=== PATIENT | female | born 1970 | race Caucasian/White ===

== ENCOUNTER 2019-12-14 20:09 | Emergency (ER) | payer OTHER ==
[~2019-12-14] VITALS: Ht 160 cm; Wt 137.0 kg
[2019-12-14] MEDS ORDERED: silver sulfADIAZINE 1% CREAM 50GM JAR. TP ONE (20:15)
[2019-12-14 20:17] VITALS: BP 156/86
[2019-12-14] MEDS ORDERED: SILV20CR14 TP (20:23)
[2019-12-14] MEDS ORDERED: HYDR-3165 PO (20:23)
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
[2019-12-14] MEDS ORDERED: HYDROcodone/APAP 5/325MG 1 TAB TABLET PO ONE (20:30)
== END 2019-12-14 20:40 | disposition home or self-care (01) ==
LOC: ER 20:09
DX: T23.272A Burn of second degree of left wrist, initial encounter (principal); E11.9 Type 2 diabetes mellitus without complications; F41.9 Anxiety disorder, unspecified; F32.9 Major depressive disorder, single episode, unspecified; F17.210 Nicotine dependence, cigarettes, uncomplicated; X12.XXXA Contact with other hot fluids, initial encounter; Y93.89 Activity, other specified; Y92.89 Other specified places as the place of occurrence of the external cause; Y99.8 Other external cause status
CPT/HCPCS: 16020; 99284

== ENCOUNTER 2021-04-01 17:18 | Emergency (ER) | payer OTHER ==
[~2021-04-01] VITALS: Ht 160 cm; Wt 137.0 kg
[~2021-04-01 17:18] MED LIST: HYDR-3165 PO; SILV20CR14 TP
[2021-04-01 17:49] VITALS: BP 147/91
[2021-04-01] MEDS ORDERED: diazePAM 5 MG TABLET. PO ONE (18:45)
[2021-04-01] MEDS ORDERED: DIAZ5TAB4 PO (18:56)
--- NOTE | 2021-04-01 18:56 | PHYS DOC ---
Past History Past Medical History: Anxiety, Depression, Diabetes Additional Past Medical Histor: Born with one kidney Past Surgical History: Cholecystectomy, Additional Past Surgical Histo: Lap Band, Shoulder, R foot, R knee, hernia Smoking: Cigarettes Alcohol Use: None Drug Use: None Adult General Chief Complaint Chief Complaint: ANXIETY/PANIC ATTACK HPI HPI Patient is a 50-year-old female who presents with a chief complaint of anxiety and medication refill. States she has anxiety and depression at baseline, and is out of her Xanax. States that she does not see her physician until Tuesday and would like a medication refill. Denies headache, change in vision, chest pain, shortness of breath, abdominal pain, nausea, vomiting. Denies any recent travel, illnesses, known ill contacts or history of VTE. States that she is here for anxiety medicine. Review of Systems Review of Systems Review of systems otherwise unremarkable except noted in HPI Allergies Allergies Allergies Coded Allergies Type Severity Reaction Last Updated Verified Penicillins Allergy Unknown 12/14/19 Yes sulfamethoxazole Allergy Unknown 12/14/19 Yes trimethoprim Allergy Unknown 12/14/19 Yes Physical Exam Physical Exam Constitutional: Well developed, well nourished, no acute distress, non-toxic appearance. [] HENT: Normocephalic, atraumatic, bilateral external ears normal, oropharynx moist, no oral exudates, nose normal. [] Eyes: conjunctiva normal, no discharge. [] Neck: Normal range of motion, no tenderness, supple, no stridor. [] Cardiovascular:Heart rate regular rhythm, no murmur [] Lungs & Thorax: Bilateral breath sounds clear to auscultation [] Skin: Warm, dry, no erythema, no rash. [] Extremities: No tenderness, ROM intact, no edema. [] Neurologic: Alert and oriented X 3, no focal deficits noted. [] Psychologic: Affect normal, judgement normal, mood normal. [] Current Patient Data Vital Signs Vital Signs Date Time Temp Pulse Resp B/P (MAP) Pulse Ox O2 Delivery O2 Flow Rate FiO2 04/01/21 17:49 97.8 97 16 147/91 (109) 98 Room Air EKG EKG [] Radiology/Procedures Radiology/Procedures [] Heart Score C/O Chest Pain: No Risk Factors: Risk Factors: DM, Current or recent (<one month) smoker, HTN, HLP, family history of CAD, obesity. Risk Scores: Risk Factors: DM, Current or recent (<one month) smoker, HTN, HLP, family history of CAD, obesity. Course & Med Decision Making Course & Med Decision Making Patient is a 50-year-old female who presents for generalized anxiety, anxiety attacks and wanting a medication refill of her Xanax Vital signs not concerning. Physical exam noted above. Had a long discussion with patient about benzodiazepines and treatment of chronic anxiety in the emergency department. Gave patient diazepam while in the emergency department and explained the long half-life. Gave patient enough to last her over the next couple of days until s he sees her doctor on Tuesday. Advised not to miss this appointment with her primary care physician on Tuesday. Gave return precautions to the ED. Gave precautions on taking benzodiazepines. Patient grateful, verbalized understanding and agreed with plan of discharge. [] Dragon Disclaimer Dragon Disclaimer This electronic medical record was generated, in whole or in part, using a voice recognition dictation system. Departure Departure: Impression: Primary Impression: Medication refill Additional Impression: Anxiety Disposition: 01 HOME / SELF CARE / HOMELESS Condition: GOOD Referrals: ONOFRE MAYES (PCP) Patient Instructions: Anxiety and Panic Attacks, [id number] Additional Instructions: Please read all the attached information very carefully. You were given rosa epam in the emergency department for your chronic anxiety. You were sent home with a prescription of these. Please take them as discussed. Please keep your upcoming appointment with your doctor on Tuesday to discuss your ED visit and manage your anxiety medications. Please come back to the emergency department with new or concerning symptoms as discussed. Scripts Diazepam (DIAZEPAM) 5 Mg Tablet 5 MG PO DAILY for anxiety for 4 Days, #4 TAB Prov: CHAU MCDOWELL MD 04/01/21 Problem Qualifiers CHAU MCDOWELL MD April 01, 2021 18:56
== END 2021-04-01 19:03 | disposition home or self-care (01) ==
LOC: ER 17:18
DX: F41.9 Anxiety disorder, unspecified (principal); F32.9 Major depressive disorder, single episode, unspecified; Z76.0 Encounter for issue of repeat prescription; E11.9 Type 2 diabetes mellitus without complications; F17.210 Nicotine dependence, cigarettes, uncomplicated; Z88.0 Allergy status to penicillin; Z88.1 Allergy status to other antibiotic agents
CPT/HCPCS: 99283